=== PATIENT | female | born 1985 | race Caucasian/White ===

== ENCOUNTER 2024-02-23 01:12 | Emergency (ER) | payer MEDICAID, SELFPAY ==
[2024-02-23 01:14] VITALS: BP 124/96; PULSE 93; RESP 16; TEMP 36.7; BMI 25.9
--- NOTE | 2024-02-23 01:58 | EKG12_ITS ---
Test Reason : DYSRHYTHMIA Blood Pressure : / mmHG Vent. Rate : 074 BPM Atrial Rate : 074 BPM P-R Int : 118 ms QRS Dur : 072 ms QT Int : 382 ms P-R-T Axes : 058 052 069 degrees QTc Int : 424 ms Normal sinus rhythm with sinus arrhythmia Normal ECG Confirmed by Ervin Kline ([id number]), videotape editor CAMMIE REECE ([id number]) on 02/24/2024 11:45:59 AM Referred By: Confirmed By:Ervin Kline
--- NOTE | 2024-02-23 01:58 | CT_ITS ---
STUDY: CTA CHEST REASON FOR EXAM: Female, 38 years old. L CP/sob/orthopnea,?injury, recent hospitalization RADIATION DOSAGE (If Supplied By Facility): CTDIvol = ( 12.10 ) mGy, DLP = ( 346.29 ) mGycm TECHNIQUE: The examination was performed with the intravenous administration of IV 100mL Isovue-370. Post-processing of the angiographic images was performed, with multiplanar reformation and 3D reconstruction. Individualized dose optimization techniques were used for this CT. COMPARISON: No relevant prior comparison study available FINDINGS: PULMONARY ARTERIES: Normal enhancement of the main pulmonary artery and right and left pulmonary arteries. Normal enhancement of the bilateral peripheral pulmonary arteries. There is no demonstrated pulmonary embolism. AORTA: Normal thoracic aorta and visualized great vessels. There is no demonstrated aortic dissection. MEDIASTINUM: Normal heart and pericardium. Normal mediastinum. Normal hilar regions. LUNGS/PLEURA: Normal visualized trachea and bronchi. The lungs are well expanded. Mild groundglass appearance in the lungs favoring edema. No consolidation. No pulmonary nodules. Normal pleura. No pneumothorax. CHEST WALL: Normal chest wall structures. UPPER ABDOMEN: Normal visualized upper abdomen. OSSEOUS STRUCTURES: No acute or suspicious osseous abnormality. CT/CTA Chest W/WO Contrast IMPRESSION: No pulmonary embolism. Mild edema. Electronically Signed: Giles Albert MD at 4:06 EDT ,
--- NOTE | 2024-02-23 01:59 | EDS_ITS ---
HPI History of Present Illness Chief Complaint: Chest Other Informant: patient Narrative Narrative: 38-year-old female states has been having at least 5 days of left-sided chest pain that radiates into her axilla and around some of her back, it is pleuritic, she has orthopnea, and she also has heaviness in her chest for the same duration of time or more. She is not frankly dyspneic and when she lays down. She denies edema in her legs. She was hospitalized at [facility] For 10 days within the past month because she states initially had a syncopal episode at work but then was diagnosed with a stroke that left her with some mild left- sided deficits and speech and gait problem due to anoxic brain injury. She states as a result of all that she has had multiple minor falls. She cannot tell me any details about any of them, and is unsure if they cause the pain that she is having in her left chest or not. She denies any other pain or injuries including extremities or head. She states she has an L5 compression fracture that preceded all of the above events, she has chronic pain there and that is no different than usual. She denies bowel or bladder dysfunction or acute neurologic symptoms in the legs compared with when she was discharged from the hospital. The only numbness she has had off and on in her left face is not present right now. [facility] Medical History Fibroid tumor Gastric ulcer Home Medications ?Medication ?Instructions ?Recorded ?Last Taken ?Type alprazolam 1 mg tablet 1 mg PO BID PRN anxiety 02/23/24 Unknown History gabapentin 300 mg capsule 300 mg PO BID 02/23/24 Unknown History levetiracetam 750 mg tablet 1,125 mg PO BID 02/23/24 Unknown History meloxicam 15 mg tablet 15 mg PO DAILY PRN pain #14 tabs 02/23/24 Unknown Rx Allergy/AdvReac Type Severity Reaction Status Date / Time butorphanol (From Stadol) Allergy Severe Anaphylaxis Verified 02/23/24 01:19 Penicillins Allergy Severe Swelling Verified 02/23/24 01:19 Surgical History (Updated 02/23/24 @ 01:20 by Jayashree Peña) H/O: hysterectomy Social History (Updated 02/23/24 @ 02:[address] Donell Cleveland MD) Smoking Status: Current every day smoker tobacco type: e-cigarettes substance use type: does not use ROS ROS ED Constitutional Constitutional ED: Denies chills or fever(s) Eyes Eyes: Denies change in vision or diplopia ENT ENT ED: Denies rhinorrhea or sore throat Cardiovascular Cardiovascular: Reports chest pain and orthopnea; Denies palpitations Respiratory/Chest Respiratory/Chest: Reports orthopnea; Denies cough or dyspnea Gastrointestinal Gastrointestinal: Denies abdominal pain, diarrhea, nausea or vomiting Genitourinary Genitourinary ED: Denies dysuria or hematuria Musculoskeletal Musculoskeletal: Reports back pain; Denies neck pain Integumentary Denies abscess or rash Neurologic Neurologic: Reports paresthesias and weakness; Denies headache(s) EXAM Physical Exam Const Vital Signs: 02/23/24 01:14 02/23/24 01:20 02/23/24 02:18 Temperature 98.1 F Temperature Source Oral Pulse Rate 93 Respiratory Rate 16 Respiratory Effort Normal Non-Labored Blood Pressure 124/96 H Blood Pressure Mean 105 Pulse Ox Oxygen Delivery Method Room Air Room Air 02/23/24 03:14 Temperature Temperature Source Pulse Rate 77 Respiratory Rate 13 Respiratory Effort Blood Pressure 114/80 Blood Pressure Mean 91 Pulse Ox 99 Oxygen Delivery Method Room Air Positive well nourished and well developed General Appearance ED: well developed and NAD HEENT Reports moist mucous membranes normocephalic and atraumatic Eyes PERRL and EOMs intact bilaterally Neck full ROM and supple Chest Wall Chest Narrative: Tender throughout left upper chest wall no crepitance or obvious step-off or subcutaneous emphysema. Breath sounds are equal bilaterally. Tenderness progresses around the axillary area, muscles and ribs. The periscapular area and rhomboids and spine are all nontender in this area. Chest: tenderness Resp normal respiratory effort and clear to auscultation bilaterally Cardio regular rate, regular rhythm and no murmurs Rate: Negative for tachycardic GI non-tender and non-distended Auscultation: normoactive bowel sounds Palpation: soft Back/Spine no CVA tenderness General Back: other FROM Extremity normal to inspection General Extremety ED: Negative for edema, pulses abnormal or tenderness General Extremity: Negative for edema or pulses abnormal Neuro oriented x3, CN's II-XII intact bilaterally and no sensory deficits noted Neuro Narrative: Tremor and mild weakness left upper extremity, but can resist gravity for 10 seconds. Same with the leg. No facial droop or gross sensory deficits. Some dysarthria and stuttering speech but no gross aphasia. Sensorium / Orientation: awake and alert Skin no rashes or lesions noted and no wounds MDM MDM MDM Narrative Medical decision making narrative: Patient saying when she lays down she cannot breathe and she has lots of pain in the upper and left chest. Given her recent hospitalization, I think best to perform a CT and rule out fractures, pulmonary embolus, other acute pulmonary etiology, in addition to blood work and an EKG. Patient amenable to that. I held off on giving her medications at the beginning because she did not know what medications we were on but nursing and I spent some time at the bedside and we sorted out the fact that she is only currently taking gabapentin, alprazolam, and levetiracetam. She is due to see neurology for the first time after her hospitalization. Labs are noted. Her EKG and troponin are normal, her BNP is well within normal limits at 9.3, and I reviewed the CTA images and result which I agree with. It is basically normal except for possibly groundglass appearance diffusely which may mean mild edema. In discussion more with the patient and her symptoms, she does not have orthopnea. When she lays down the left sided and upper chest discomfort is worse, and since it is pleuritic it makes it harder for her to breathe and she agrees it is because the pain is worse. She does not have pleural effusions, she does not clinically sound like she has pulmonary edema. Her vital signs are normal, she is well-appearing complaining of 8/10 pain. I think anti-inflammatories are the answer here. She states I basically have had this pain ever since they did CPR on me. She was under the impression that she had fractures of some bones in her upper chest possibly her sternum due to the CPR. I reassured her that was not seen on the CT right now. I am giving her a dose of Toradol, as well as a prescription for meloxicam. I checked an [facility] report, she had some narcotics at the end of December, I do not think she needs that right now. Lab Data Attestation: I reviewed the patient's lab results. Labs: Laboratory Results - last 24 hr 02/23/24 02:10 WBC 11.6 H RBC 4.18 L Hgb 12.4 Hct 37.0 MCV 88.5 MCH 29.7 MCHC 33.5 RDW Std Deviation 41.9 RDW Coeff of Cy 13.0 Plt Count 373 MPV 8.4 Immature Gran % (Auto) 0.200 Neut % (Auto) 39.5 L Lymph % (Auto) 48.2 H [place] % (Auto) 5.0 Eos % (Auto) 6.5 H Baso % (Auto) 0.6 Absolute Neuts (auto) 4.6 Absolute Lymphs (auto) 5.60 H Nucleated RBC % 0 Differential Comment SCANNED Sodium 142 Potassium 3.4 L Chloride 111 H Carbon Dioxide 26.0 Anion Gap 5 BUN 7 Creatinine 0.65 Estim Creat Clear Calc 101.17 Est GFR (MDRD) Af Amer 133 Est GFR (MDRD) Non-Af 110 BUN/Creatinine Ratio 10.8 Glucose 109 H Calcium 9.3 Troponin I High Sens < 3 L B-Natriuretic Peptide 9.3 Radiography Diagnostic Testing: Clinical Impression(s) from Imaging Studies Chest CTA 02/23/24 01:58 IMPRESSION: No pulmonary embolism. Mild edema. Electronically Signed: Giles Albert MD at 4:06 EDT Reading Location ID and State: [address] [place] [address] Tel , Service support , Rhythm Strip Rhythm Strip: Sinus Rhythm Rate: 75 Ectopy: None EKG Initial EKG: Attestation: I personally reviewed and interpreted this EKG as follows: Interpretation: Sinus Rhythm and No Acute Injury Pattern Comments: nml EKG Discharge Plan Triage Chief Complaint: Chest Other ED Provider: Donell Cleveland Dx/Rx/DC Orders Clinical Impression: Acute chest wall pain Instructions: ED Chest Wall Strain Prescriptions: New meloxicam 15 mg tablet 15 mg PO DAILY PRN (Reason: pain) Qty: 14 0RF No Action alprazolam 1 mg tablet 1 mg PO BID PRN gabapentin 300 mg capsule 300 mg PO BID levetiracetam 750 mg tablet 1,125 mg PO BID Primary Care Provider: Vandana Newell NP Referrals: Vandana Newell NP, [employer] [Primary Care Provider] - As soon as possible Print Language: Austrian Disposition Disposition: Home, Self Care
[2024-02-23 02:18] LABS: Absolute Neutrophil Count 4.6 X10^3/uL (2.0-7.7); Basophil# 0.07 X10^3/uL; Basophil% 0.6 % (0-1); Eosinophil# 0.75 X10^3/uL; Eosinophils% 6.5 % (0-5); Hemoglobin 12.4 g/dL (12.0-15.0); Lymphocyte % 48.2 % (19-41); Mean Corp Hgb Conc 33.5 g/dL (32-36); Mean Corpuscular Hgb 29.7 pg (27.0-32.0); Mean Corpuscular Volume 88.5 fL (81-99); Mean Platelet Vol. 8.4 fl (6.2-12.0); Monocyte# 0.58 X10^3/uL; NRBC Flagged by Analyzer 0 % (0-5); Neutrophil % 39.5 % (47-70); POSITIVE DIFFERENTIAL YES; Platelet Count 373 K/mm3 (150-450); RBC Distribution Width SD 41.9 fl (35.1-43.9); Red Blood Count 4.18 M/mm3 (4.2-5.4); White Blood Count 11.6 K/mm3 (4.4-11.0)
[2024-02-23 02:38] LABS: BNP,B-Type NATRIURETIC PEPTIDE 9.3 pg/mL (0-100)
[2024-02-23 02:40] LABS: Anion Gap 5 (5-15); BUN 7 mg/dL (7-18); BUN/Creat Ratio 10.8 RATIO (10-20); Calcium,Total 9.3 mg/dL (8.5-10.1); Chloride 111 mmol/L (98-107); Creatinine, Serum 0.65 mg/dL (0.55-1.02); EST Glomerular Filtration Rate 110 mL/min (>60); Est Glom Filt Rate - Afr Amer 133 mL/min (>60); Estimated Creatinine Clearance 101.17 ml/min; Glucose 109 mg/dL (74-106); Potassium 3.4 mmol/L (3.5-5.1); Sodium Level 142 mmol/L (136-145); Troponin-I HS < 3 pg/mL (3.0-54.0)
[2024-02-23 02:51] LABS: Differential Indicated SCAN CRITERIA MET
[2024-02-23 02:52] LABS: Differential Comment SCANNED
[2024-02-23 03:14] VITALS: BP 114/80; PULSE 77; RESP 13; O2SAT 99
[2024-02-23] MEDS: Ketorolac 30 MG/ML Syringe IV (04:55)
[2024-02-23 04:58] VITALS: BP 116/86; PULSE 71; RESP 16; TEMP 36.7; O2SAT 100
== END 2024-02-23 04:59 | disposition home or self-care (01) ==
PROVIDERS: Emergency Provider Emergency Medicine; PCP Nurse Practitioner Family; Visit Provider Emergency Medicine
DX: R07.89 Other chest pain (principal); F17.290 Nicotine dependence, other tobacco product, uncomplicated; Z79.899 Other long term (current) drug therapy
CPT/HCPCS: 71275; 80048; 83880; 84484; 85025; 93005; 96374; 99284; Q9967; A4216